=== PATIENT | female | born 1990 | race Caucasian/White ===

== ENCOUNTER 2017-07-06 08:41 | Emergency (ER) | payer SELFPAY ==
[~2017-07-06] VITALS: Ht 172.7 cm; Wt 101.5 kg
[2017-07-06 08:54] VITALS: BP 122/87; PULSE 77; RESP 16; TEMP 98.4; O2SAT 96
[2017-07-06] MEDS ORDERED: AMOX400S3 PO (09:40)
--- NOTE | 2017-07-06 09:46 | PD ---
HPI Chief Complaint: Cold / Flu Symptoms Time Seen by Provider: 09:31 Travel History International Travel<30 days: No Contact w/Intl Traveler<30days: No Traveled to known affect area: No History of Present Illness HPI Patient comes in complaining of sore throat, congestion, and right ear pain ongoing for 3 days. Patient states sore throat improves during the day and is worse at night. Pain is worse with swallowing. Patient describes right ear pain as a constant throbbing pain without radiation. Patient been using DayQuil and NyQuil with minimal relief of symptoms. Patient has tried burping in order to pop her ear that only made the pain worse. Denies any radiation of pain. Reports significant other at home with similar. Denies any known fevers , cough, chest pain, shortness of breath, headache, , nausea, vomiting , diarrhea, abdominal pain, or neck pain. Patient reports history of ear tubes as a child. PFSH Past Medical History Autoimmune Disease: No Anxiety: No Depression: No Cancer: No Cardiovascular Problems: No Diminished Hearing: No Endocrine: No Gastrointestinal Disorders: Yes (GALLBLADDER PROBLEMS) Genitourinary: No Immune Disorder: No Musculoskeletal: No Neurologic: No Psychiatric: No Reproductive: No Respiratory: No Immunizations Current: Yes ?: Not LMP: APR 2017 : 1 Para: 0 Miscarriage: 1 : 0 Past Surgical History AICD: No Arteriovenous Shunt: No Ear Surgery: Yes (tubes placed) Insulin Pump: No Joint Replacement: No Pacemaker: No Tympanostomy Tube: Yes Social History Alcohol Use: No Tobacco Use: No (quit 11/2014) Substance Use: No Allergies-Medications (Allergen,Severity, Reaction): Coded Allergies: No Known Allergies (Verified Adverse Reaction, Unknown, 07/06/17) Reported Meds & Prescriptions Reported Meds & Active Scripts Active Amoxicillin Liq (Amoxicillin) 400 Mg/5 Ml Susp 11 Mg PO BID 10 Days Review of Systems Except as stated in HPI: all other systems reviewed are Neg Physical Exam Narrative GENERAL: Well-developed, overly nourished, in no acute distress, and non-ill appearing. SKIN: Focused skin assessment warm and dry. HEAD: Atraumatic. Normocephalic. EYES: Pupils equal and round. EOMI. No scleral icterus. No injection or drainage. ENT: No nasal bleeding or discharge. Mucous membranes pink and moist. Left tympanic membrane pearly whatley. Right temporal membranes mildly erythematous or bubbles noted. Posterior pharynx mildly erythematous without exudate. Uvula is midline. Patient speaking in full sentences without difficulty and swallowing own saliva. No tenderness to facial sinuses to palpation. NECK: Trachea midline. No cervical lymphadenopathy. Supple. No nuclear rigidity. CARDIOVASCULAR: Regular rate and rhythm. No murmur appreciated. RESPIRATORY: No accessory muscle use. No respiratory distress. Clear to auscultation. Breath sounds equal bilaterally. MUSCULOSKELETAL: No obvious deformities. No clubbing. No cyanosis. No edema. Full range of motion. NEUROLOGICAL: Awake and alert. No obvious cranial nerve deficits. Motor grossly within normal limits. Normal speech. PSYCHIATRIC: Appropriate mood and affect; insight and judgment normal. Data Data Last Documented VS Vital Signs Date Time Temp Pulse Resp B/P (MAP) Pulse Ox O2 Delivery O2 Flow Rate FiO2 07/06/17 08:54 98.4 77 16 122/87 (99) 96 Orders Orders Ed Discharge Order (07/06/17 09:46) MDM Medical Decision Making Medical Screen Exam Complete: Yes Emergency Medical Condition: Yes Differential Diagnosis Otitis media, otitis externa, strep pharyngitis, viral pharyngitis, sinusitis, URI, viral syndrome Narrative Course Patient looks great, non-ill appearing. The patient is tolerating fluids and is well hydrated. Appears simple otitis media. No clinical evidence by history or evaluation to suspect meningitis and/or sepsis, nor malignant OE or mastoiditis. I discussed with the patient, diagnosis, plan of care and to follow up with the patients primary physician and/or ENT within the next week. The patient was instructed to return if worsens in anyway, especially if increased pain, persistent fever, worsening headache neck pain or as needed. The patient agreed with plan. Patient in no obvious distress upon re-evaluation. Patient was asked if they wanted to speak to my attending, which the patient did not wish to do at this time. Any questions/concerns in reference to patient diagnosis/condition discussed and clarified prior to patient's discharge. Reinforced sheer importance of close follow up with patient's primary physician or primary care clinic and/or ENT. Instructed patient to return to ED immediately, if symptoms return/worsen. Patient showed understanding of above instructions. Further instructions and recommendations were detailed in discharge paperwork. Patient ambulated without difficulty out of ED at discharge. Diagnosis Primary Impression: Otitis media Qualified Codes: H66.90 - Otitis media, unspecified, unspecified ear Referrals: Devante Lomax MD [facility] Patient Instructions: Ear Infection (ED), General Instructions Additional Instructions: Follow-up with your primary care physician and/or ENT next week for reevaluation. Take all medication as prescribed. Continue using over-the- counter DayQuil and NyQuil for symptomatic relief. Use ibuprofen over-the- counter as needed for additional pain and/or fever control. Follow instructions on the packaging. Drink plenty of non-caffeinated and nonalcoholic fluids. Return to the emergency department if symptoms get worse. Med/Other Pt SpecificInfo: Prescription(s) given Scripts Amoxicillin Liq (Amoxicillin Liq) 400 Mg/5 Ml Susp 11 MG PO BID for Infection for 10 Days, ML 0 Refills Prov: Le Green MD 07/06/17 Disposition: 01 DISCHARGE HOME Condition: Stable Elvis Hubbard Jul 06, 2017 09:46
== END 2017-07-06 09:54 | disposition home or self-care (01) ==
LOC: PHED 08:41 → PHEFT 09:54
DX: H66.90 Otitis media, unspecified, unspecified ear (principal); Z87.891 Personal history of nicotine dependence
CPT/HCPCS: 99283

== ENCOUNTER 2017-11-13 06:50 | Emergency (ER) | payer SELFPAY ==
[~2017-11-13] VITALS: Ht 172.7 cm; Wt 102.5 kg
[~2017-11-13 06:50] MED LIST: AMOX400S3 PO
[2017-11-13 06:57] VITALS: BP 139/89; PULSE 89; RESP 18; TEMP 98.5; O2SAT 98
--- NOTE | 2017-11-13 07:24 | PD ---
HPI Chief Complaint: Cold / Flu Symptoms Time Seen by Provider: 07:15 Travel History International Travel<30 days: No Contact w/Intl Traveler<30days: No Traveled to known affect area: No History of Present Illness HPI This 27-year-old female has been sick for couple of days. She has had a persistent cough. She has noted some wheezing at times. She has no history of asthma. She does not smoke and is not exposed to smoke. She has had some sinus congestion. She is not aware of fever. She does have some pain when she coughs in her chest PFSH Past Medical History Autoimmune Disease: No Anxiety: No Depression: No Cancer: No Cardiovascular Problems: No Diminished Hearing: No Endocrine: No Gastrointestinal Disorders: Yes (GALLBLADDER PROBLEMS) Genitourinary: No Immune Disorder: No Musculoskeletal: No Neurologic: No Psychiatric: No Reproductive: No Respiratory: No Immunizations Current: Yes Tetanus Vaccination: > 5 Years Influenza Vaccination: No ?: Not LMP: at the beginig of the month : 1 Para: 0 Miscarriage: 1 : 0 Past Surgical History AICD: No Arteriovenous Shunt: No Ear Surgery: Yes (tubes placed) Hysterectomy: Yes (04/22/16) Insulin Pump: No Joint Replacement: No Pacemaker: No Tympanostomy Tube: Yes Social History Alcohol Use: No Tobacco Use: No (quit 11/2014) Substance Use: No Allergies-Medications (Allergen,Severity, Reaction): Coded Allergies: No Known Allergies (Verified Adverse Reaction, Unknown, 11/13/17) Reported Meds & Prescriptions Reported Meds & Active Scripts Active No Active Prescriptions or Reported Medications Review of Systems General / Constitutional: No: Fever, Chills Eyes: No: Diploplia, Blurred Vision HENT: Positive: Sore Throat, Rhinitis Cardiovascular: Positive: Chest Pain or Discomfort Respiratory: Positive: Cough, Wheezing Gastrointestinal: No: Nausea, Vomiting Genitourinary: No: Urgency, Frequency Musculoskeletal: No: Myalgias, Arthralgias Skin: No Rash Physical Exam Narrative GENERAL: Well-developed female SKIN: Focused skin assessment warm/dry. HEAD: Atraumatic. Normocephalic. EYES: Pupils equal and round. No scleral icterus. No injection or drainage. ENT: No nasal bleeding or discharge. Mucous membranes pink and moist. NECK: Trachea midline. No JVD. CARDIOVASCULAR: Regular rate and rhythm. No murmur appreciated. RESPIRATORY: No accessory muscle use. There are occasional wheezes. Breath sounds equal bilaterally. GASTROINTESTINAL: Abdomen soft, non-tender, nondistended. Hepatic and splenic margins not palpable. MUSCULOSKELETAL: No obvious deformities. No clubbing. No cyanosis. No edema. NEUROLOGICAL: Awake and alert. No obvious cranial nerve deficits. Motor grossly within normal limits. Normal speech. PSYCHIATRIC: Appropriate mood and affect; insight and judgment normal. Data Data Last Documented VS Vital Signs Date Time Temp Pulse Resp B/P (MAP) Pulse Ox O2 Delivery O2 Flow Rate FiO2 11/13/17 07:13 Room Air 11/13/17 06:57 98.5 89 18 139/89 (106) 98 Orders Orders Chest, Pa & Lat (11/13/17 07:20) Albuterol-Ipratropium Neb (Duoneb Neb) (11/13/17 07:30) [facility] Medical Decision Making Medical Screen Exam Complete: Yes Emergency Medical Condition: Yes Medical Record Reviewed: Yes Differential Diagnosis Differential includes acute bronchitis, pneumonia, reactive airways disease Narrative Course X-ray is negative. Patient declined trial of bronchodilator as she said she was scared. She will be given prescription for amoxicillin and albuterol to use as needed Diagnosis Primary Impression: Acute bronchitis Scripts Albuterol 18 GM Inh (Ventolin Hfa 18 GM Inh) 90 Mcg/Act Aer 1 PUFF INH Q4H Y for SHORTNESS OF BREATH, #1 INHALER 0 Refills Prov: Zack Gambino MD 11/13/17 Amoxicillin Liq (Amoxicillin Liq) 250 Mg/5 Ml Susp 500 MG PO TID for Infection for 10 Days, ML 0 Refills Prov: Zack Gambino MD 11/13/17 Disposition: 01 DISCHARGE HOME Condition: Stable Zack Gambino MD November 13, 2017 07:24
[2017-11-13] MEDS ORDERED: RESP: ALBUTEROL 2.5 MG/IPRATROPIUM 0.5 MG NEB (SCH) NEB ONE (07:30)
--- NOTE | 2017-11-13 08:11 | RADRPT ---
EXAM DATE/TIME: 11/13/2017 07:55 [place] COMPARISON: No previous studies available for comparison. INDICATIONS : Cough, chest congestion. MEDICAL HISTORY : None. SURGICAL HISTORY : Hysterectomy. ENCOUNTER: Initial ACUITY: 3 days PAIN SCORE: 1/10 LOCATION: Bilateral chest FINDINGS: PA and lateral views of the chest demonstrate the lungs to be symmetrically aerated without evidence of mass, infiltrate or effusion. The cardiomediastinal contours are unremarkable. Osseous structure s are intact. CONCLUSION: 1. No acute cardiopulmonary disease. Oren Trejo MD on November 13, 2017 at 8:02 Board Certified Radiologist. This report was verified electronically.
[2017-11-13] MEDS ORDERED: VENTAER INH (08:34)
[2017-11-13] MEDS ORDERED: AMOX250S2 PO (08:34)
== END 2017-11-13 09:13 | disposition home or self-care (01) ==
LOC: PHED 06:50
DX: J20.9 Acute bronchitis, unspecified (principal)
CPT/HCPCS: 71046; 99283